=== PATIENT | female | born 1940 | race Caucasian/White ===

== ENCOUNTER 2018-12-21 10:11 | Outpatient (CLI) | payer MEDICARE | END 2018-12-21 10:12 | disposition home or self-care (01) | LOC: BICMAMMO 10:11 → MERGE 10:15 | PROVIDERS: ATTEND Family Medicine | DX: Z12.31 Encounter for screening mammogram for malignant neoplasm of breast (principal) | CPT/HCPCS: 77063; 77067 ==

== ENCOUNTER 2019-03-25 20:38 | Emergency (ER) | payer MEDICARE ==
[~2019-03-25 20:38] MED LIST: ISOVUE-370 76%-LOCM 1 ML ONE
[2019-03-25 21:33] LABS: Bilirubin Moderate (Negative); Blood, Urine Negative (Negative); Clarity CLEAR (Clear); Glucose, Urine (Dipstick) Negative (Negative); Leukocyte Small (Negative); Nitrite Negative (Negative); Protein, Urine (Dipstick) Trace mg/dL (Neg-Trace); Specific Gravity, Urine 1.023 (1.002-1.036)
[2019-03-25 21:34] LABS: #Basophils 0.1 thou/uL (0.0-0.2); #Lymphocytes 0.9 thou/uL (1.20-3.40); #Monocytes 0.6 thou/uL (0.11-0.59); #Neutrophils 10.4 thou/uL (1.40-6.50); %Basophils 0.4 % (0.0-1.0); %Eosinophils 0.3 % (0.0-10.0); %Lymphocytes 7.3 % (21.0-51.0); %Monocytes 4.9 % (0.0-10.0); Hemoglobin 12.3 g/dL (12.0-16.0); Mean Corpuscular HGB CONC 32.3 g/dL (32.0-36.0); Mean Corpuscular Hemoglobin 27.2 pg (27.0-31.0); Mean Corpuscular Volume 84.3 fL (78.0-98.0); Mean Platelet Volume 9.9 fL (7.4-10.4); Platelet Count 261 thou/uL (130-400); Red Blood Cell (RBC) Count 4.53 mill/uL (4.20-5.40)
[2019-03-25 21:35] LABS: Bacteria/HPF None Seen HPF (None Seen); Hyaline Casts/LPF 7-10 HYALINE CAST LPF (0-3 Hyaline); Pathc Cast-AUWi Flag 0.95 (0-2.49); RBC/HPF 0-3 HPF (0-3); Squamous Epithelial 0-3 HPF (0-3); WBC/HPF 0-3 HPF (0-3)
[2019-03-25 21:55] LABS: ALT (SGPT) 13 U/L (8-55); AST (SGOT) 18 U/L (5-34); Alkaline Phosphatase 89 U/L (40-150); Anion Gap 12 mmol/L (10-20); BUN (Urea Nitrogen) 17 mg/dL (9.8-20.1); Bilirubin, Total 0.3 mg/dL (0.2-1.2); Calc. Creatinine Clearance 0 mL/min (70-130); Calcium 9.5 mg/dL (7.8-10.44); Carbon Dioxide 28 mmol/L (23-31); Chloride 98 mmol/L (98-107); Estimated GFR-MDRD 55; Globulin 2.7 g/dL (2.4-3.5); Glucose 105 mg/dL (83-110); Lipase 16 U/L (8-78); Protein, Total 6.7 g/dL (6.0-8.3); Sodium 134 mmol/L (136-145)
[2019-03-25] MEDS ORDERED: cloNIDine 0.1 MG TAB ONE (22:03)
[2019-03-25] MEDS ORDERED: Piperacillin/Tazobactam 3.375 GM VIAL ONE (22:47)
--- NOTE | 2019-03-25 22:59 | CT ---
CT ABDOMEN AND PELVIS WITH IV CONTRAST 03/25/2019 CLINICAL INFORMATION: Abdominal pain for last week. Excruciating pain in the lower abdomen. Reported normal colonoscopy in January 2019. COMPARISON: 10/07/2018. Technique: Multiple contiguous axial CT images are obtained through the abdomen and pelvis with IV contrast. Cor onal reformatted images are provided. FINDINGS: Lower Chest: within normal limits. Vessels: Vascular calcifications are again seen in the abdominal aorta and involving the iliac arteri es. Abdomen: Portal vein:Patent Gallbladder: Postcholecystectomy changes are again seen. Liver: within normal limits. Pancreas: within normal limits. Spleen: within normal limits. Adrenals: within normal limits. Kidneys: Stable very tiny exophytic subcentimeter hypodense lesion midportion right kidney statistica lly likely representing a tiny cyst. The kidneys otherwise have a normal CT appearance. Bowel: Small amount of retained fecal material seen in the colon. Multiple colonic diverticula are se en in the sigmoid colon. There is masslike thickening in in the region of the rectosigmoid junction which was not seen on the prior exam. Multiple adjacent diverticula are seen, and there is adjacent p ericolonic inflammatory changes seen. These findings may be secondary to diverticulitis. A mass within the colon in this region could not be entirely excluded. The multiple colonic diverticula limi t evaluation for microperforation, but no significant intraperitoneal free gas is seen, and there is no free fluid or fluid collection seen in the pelvis. Appendix: The appendix is not definitely visualized, there are no secondary signs to suggest appendic itis. Mesentery and Retroperitoneum: No enlarged mesenteric or retroperitoneal lymph nodes. Abdominal Wall: within normal limits. Pelvis: Reproductive Organs: Nonvisualization of the uterus likely attributable to hysterectomy. Bladder: within normal limits. Bones: Postsurgical changes lumbar spine and left iliac bone are again seen. Osteopenia is present. IMPRESSION: 1. Masslike thickening at the rectosigmoid junction with multiple adjacent colonic diverticuli seen i n the sigmoid colon and likely in this region as well. There are adjacent pericolonic inflammatory changes as well as presacral inflammatory changes. Findings may be secondary to diverticulitis. A lamine plastic process in this region cannot be entirely excluded. No definite free intraperitoneal free gas is present, but given the multiple diverticuli in this region, microperforation would be difficul t to entirely exclude. No fluid collection is seen to suggest an abscess. Follow-up evaluation is recommended to ensure resolution of this masslike area of thickening which again may be attributable to diverticulitis. 2. Additional findings are as described above. 3. Above findings discussed with Dr. Loco on 03/25/2019 at 1047 hours.
--- NOTE | 2019-03-26 10:35 | EKG ---
Test Reason : Blood Pressure : / mmHG Vent. Rate : 064 BPM Atrial Rate : 064 BPM P-R Int : 160 ms QRS Dur : 074 ms QT Int : 418 ms P-R-T Axes : 000 -04 010 degrees QTc Int : 431 ms Normal sinus rhythm Minimal voltage criteria for LVH, may be normal variant Borderline ECG Confirmed by NATALIA CORNEJO ([id number]), desk editor DEREK WHITNEY ([id number] on 03/26/2019 10:34:53 AM Referred By: Confirmed By:NATALIA CORNEJO
== END 2019-03-25 23:35 | disposition home or self-care (01) ==
LOC: ERS 20:38
DX: K57.32 Diverticulitis of large intestine without perforation or abscess without bleeding (principal); K21.9 Gastro-esophageal reflux disease without esophagitis; I12.0 Hypertensive chronic kidney disease with stage 5 chronic kidney disease or end stage renal disease; N18.6 End stage renal disease; Z79.899 Other long term (current) drug therapy
CPT/HCPCS: 36415; 74177; 80053; 81003; 81015; 83690; 85025; 93005; 96365; J2543; Q9966

== ENCOUNTER 2019-04-05 11:00 | Emergency (ER) | payer MEDICARE, OTHER ==
[2019-04-05 11:35] LABS: #Lymphocytes 0.7 thou/uL (1.20-3.40); #Monocytes 0.5 thou/uL (0.11-0.59); #Neutrophils 6.6 thou/uL (1.40-6.50); %Basophils 0.3 % (0.0-1.0); %Eosinophils 0.4 % (0.0-10.0); %Lymphocytes 9.1 % (21.0-51.0); %Monocytes 6.3 % (0.0-10.0); %Neutrophils 83.9 % (42.0-75.0); Hemoglobin 13.2 g/dL (12.0-16.0); Mean Corpuscular HGB CONC 32.3 g/dL (32.0-36.0); Mean Corpuscular Hemoglobin 27.1 pg (27.0-31.0); Mean Platelet Volume 10.3 fL (7.4-10.4); Platelet Count 206 thou/uL (130-400); RBC Distribution Width 12.4 % (11.5-14.5); Red Blood Cell (RBC) Count 4.86 mill/uL (4.20-5.40); White Blood Cell (WBC) Count 7.8 thou/uL (4.8-10.8)
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
[2019-04-05 11:59] LABS: ALT (SGPT) 14 U/L (8-55); AST (SGOT) 22 U/L (5-34); Albumin 4.2 g/dL (3.4-4.8); Alkaline Phosphatase 63 U/L (40-150); Anion Gap 16 mmol/L (10-20); BUN (Urea Nitrogen) 12 mg/dL (9.8-20.1); Bilirubin, Total 0.5 mg/dL (0.2-1.2); Calc. Creatinine Clearance 0 mL/min (70-130); Calcium 9.5 mg/dL (7.8-10.44); Carbon Dioxide 21 mmol/L (23-31); Chloride 100 mmol/L (98-107); Estimated GFR-MDRD 44; Glucose 103 mg/dL (83-110); Potassium 3.8 mmol/L (3.5-5.1); Protein, Total 6.2 g/dL (6.0-8.3); Sodium 133 mmol/L (136-145)
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
[2019-04-05 13:03] LABS: Bilirubin Negative (Negative); Blood, Urine Negative (Negative); Clarity CLEAR (Clear); Glucose, Urine (Dipstick) Negative (Negative); Leukocyte Negative (Negative); Nitrite Negative (Negative); Protein, Urine (Dipstick) Trace mg/dL (Neg-Trace); Specific Gravity, Urine 1.016 (1.002-1.036); Urobilinogen 0.2 mg/dL (0.2-1.0)
== END 2019-04-05 14:02 | disposition home or self-care (01) ==
LOC: ERS 11:00
DX: S80.12XA Contusion of left lower leg, initial encounter (principal); S80.11XA Contusion of right lower leg, initial encounter; K21.9 Gastro-esophageal reflux disease without esophagitis; I12.0 Hypertensive chronic kidney disease with stage 5 chronic kidney disease or end stage renal disease; N18.6 End stage renal disease; Z79.899 Other long term (current) drug therapy; V49.9XXA Car occupant (driver) (passenger) injured in unspecified traffic accident, initial encounter
CPT/HCPCS: 36415; 70450; 71045; 80053; 81003; 83880; 84484; 85025; 93005

== ENCOUNTER 2021-01-28 11:51 | Outpatient (CLI) | payer MEDICARE | END 2021-01-28 11:52 | disposition home or self-care (01) | LOC: BICRAD 11:51 | PROVIDERS: ATTEND Family Medicine | DX: Z91.81 History of falling (principal); S52.571A Other intraarticular fracture of lower end of right radius, initial encounter for closed fracture; S52.611A Displaced fracture of right ulna styloid process, initial encounter for closed fracture ==

== ENCOUNTER 2021-02-08 10:44 | Outpatient (CLI) | payer MEDICARE | END 2021-02-08 10:45 | disposition home or self-care (01) | LOC: SCSRAD 10:44 | PROVIDERS: ATTEND Family Medicine | DX: U07.1 COVID-19 (principal); Z11.1 Encounter for screening for respiratory tuberculosis; R91.8 Other nonspecific abnormal finding of lung field | CPT/HCPCS: 71046; 87635; U0003; U0005 ==